=== PATIENT | female | born 2000 | race Caucasian/White ===

== ENCOUNTER → 2021-08-23 | Emergency (ER) | payer SELFPAY ==
[~2021-08-23] MED LIST: PHENERGAN 25 MG25 M1 PO
[2021-08-23 01:20] LABS: HEMOGLOBIN 14.6 gm/dl (12.3-15.3); RED BLOOD COUNT 4.98 M/UL (4.00-5.10); WHITE BLOOD COUNT 15.2 K/UL (4.5-11.0)
[2021-08-23 01:34] LABS: BUN/CREATININE RATIO 14 (0-10)
== END | disposition home or self-care (01) ==
LOC: ER1 00:24
PROVIDERS: Family Medicine
DX: R11.2 Nausea with vomiting, unspecified (principal); R10.9 Unspecified abdominal pain; R19.7 Diarrhea, unspecified; F17.290 Nicotine dependence, other tobacco product, uncomplicated
CPT/HCPCS: 80053; 81001; 83690; 84702; 85025; 93005; 96374; 96375; 99284; J2405; J2550; J7030

== ENCOUNTER 2021-12-26 15:54 | Emergency (ER) | payer OTHER ==
[2021-12-26 16:56] LABS: HEMOGLOBIN 13.8 gm/dl (12.3-15.3); RED BLOOD COUNT 4.79 M/UL (4.00-5.10); WHITE BLOOD COUNT 8.2 K/UL (4.5-11.0)
[2021-12-26 17:22] LABS: BUN/CREATININE RATIO 10 (0-10)
== END 2021-12-26 20:44 | disposition home or self-care (01) ==
LOC: ER1 15:54
PROVIDERS: Physician Assistant
DX: R10.13 Epigastric pain (principal); R10.816 Epigastric abdominal tenderness; K21.9 Gastro-esophageal reflux disease without esophagitis; F17.200 Nicotine dependence, unspecified, uncomplicated
CPT/HCPCS: 80053; 81001; 83605; 83690; 84703; 85025; 87040; 93005; 96374; 99284; J2405; Q9967

== ENCOUNTER 2022-03-24 14:26 | Emergency (ER) | payer OTHER ==
[2022-03-24 15:03] LABS: HEMOGLOBIN 13.9 gm/dl (12.3-15.3); RED BLOOD COUNT 4.86 M/UL (4.00-5.10); WHITE BLOOD COUNT 12.3 K/UL (4.5-11.0)
[2022-03-24 15:29] LABS: BUN/CREATININE RATIO 11 (0-10)
== END 2022-03-24 17:18 | disposition home or self-care (01) ==
LOC: ER1 14:26
PROVIDERS: Physician Assistant
DX: F12.980 Cannabis use, unspecified with anxiety disorder (principal); R00.0 Tachycardia, unspecified; F17.290 Nicotine dependence, other tobacco product, uncomplicated
CPT/HCPCS: 71045; 80053; 80307; 81001; 82550; 82553; 84484; 85025; 93005; 99285